=== PATIENT | female | born 1985 | race Caucasian/White ===

== ENCOUNTER → 2016-05-08 | Outpatient (CLI) | payer OTHER ==
[~2016-05-08] MED LIST: ACET50TA PO; LOVE1INJ SC; VITAPRTA PO; [UNRECOGNIZED DRUG - CODE] IJ
[2016-05-08 13:24] LABS: BASO % 0.1 % (0.0-1.0); EOS # 0.1 K/mm3 (0.0-0.50); EOS % 0.8 % (0.0-3.0); LARGE UNSTAINED CELL # 0.2 K/mm3 (0.0-0.4); LARGE UNSTAINED CELL % 1.2 % (0.0-4.0); LYMPH # 2.9 K/mm3 (1.5-6.5); LYMPH % 16.9 % (24.0-44.0); MEAN CORPUSCULAR HEMOGLOBIN 32.9 pg (27.0-33.0); MEAN CORPUSCULAR HGB CONC 33.9 g/dl (32.0-36.5); MEAN CORPUSCULAR VOLUME 97.2 fl (80.0-96.0); MONO # 0.8 K/mm3 (0.0-0.8); MONO % 4.4 % (0.0-5.0); NEUTROPHILS # 13.2 K/mm3 (1.8-7.7); NEUTROPHILS % 76.6 % (36.0-66.0); PLATELET COUNT, AUTOMATED 338 k/mm3 (150-450); RED CELL DISTRIBUTION WIDTH 12.9 % (11.5-14.5); WHITE BLOOD COUNT 17.3 K/mm3 (4.0-10.0)
== END ==
LOC: M SMT 09:08
PROVIDERS: ATTEND Specialist
DX: Z34.82 Encounter for supervision of other normal pregnancy, second trimester (principal)

== ENCOUNTER → 2016-06-15 | Outpatient (CLI) | payer OTHER ==
[2016-06-15 13:28] LABS: BASO % 0.3 % (0.0-1.0); EOS # 0.2 K/mm3 (0.0-0.50); EOS % 1.1 % (0.0-3.0); LARGE UNSTAINED CELL # 0.3 K/mm3 (0.0-0.4); LARGE UNSTAINED CELL % 1.9 % (0.0-4.0); LYMPH % 18.9 % (24.0-44.0); MEAN CORPUSCULAR HEMOGLOBIN 31.1 pg (27.0-33.0); MEAN CORPUSCULAR HGB CONC 33.9 g/dl (32.0-36.5); MEAN CORPUSCULAR VOLUME 91.9 fl (80.0-96.0); MONO # 0.8 K/mm3 (0.0-0.8); MONO % 5.3 % (0.0-5.0); NEUTROPHILS # 11.3 K/mm3 (1.8-7.7); NEUTROPHILS % 72.4 % (36.0-66.0); PLATELET COUNT, AUTOMATED 325 k/mm3 (150-450); WHITE BLOOD COUNT 15.6 K/mm3 (4.0-10.0)
[2016-06-15 13:55] LABS: ALT/SGPT 14 U/L (12-78); AST/SGOT 12 U/L (15-37); BILIRUBIN,TOTAL 0.3 MG/DL (0.2-1.0); CREATININE FOR GFR 0.61 MG/DL (0.55-1.02); GLOMERULAR FILTRATION RATE > 60.0 (>60); URIC ACID 2.4 MG/DL (2.6-6.0)
== END ==
LOC: M LAB 12:47
PROVIDERS: ATTEND Advanced Practice Midwife
DX: Z87.59 Personal history of other complications of pregnancy, childbirth and the puerperium (principal)

== ENCOUNTER → 2016-06-25 | Outpatient (CLI) | payer OTHER ==
[2016-06-25 14:09] LABS: MEAN CORPUSCULAR HEMOGLOBIN 30.6 pg (27.0-33.0); MEAN CORPUSCULAR HGB CONC 34.2 g/dl (32.0-36.5); MEAN CORPUSCULAR VOLUME 89.7 fl (80.0-96.0); RED CELL DISTRIBUTION WIDTH 14.8 % (11.5-14.5)
[2016-06-25 14:32] LABS: ALT/SGPT 12 U/L (12-78); AST/SGOT 12 U/L (15-37); BILIRUBIN,TOTAL 0.4 MG/DL (0.2-1.0); GLOMERULAR FILTRATION RATE > 60.0 (>60); URIC ACID 2.8 MG/DL (2.6-6.0)
== END ==
LOC: M LAB 13:35
PROVIDERS: ATTEND Obstetrics & Gynecology
DX: O16.3 Unspecified maternal hypertension, third trimester (principal); Z3A.00 Weeks of gestation of pregnancy not specified

== ENCOUNTER → 2016-06-27 | Outpatient (CLI) | payer OTHER ==
[~2016-06-27] MED LIST changes: +FIOR1CAP PO
--- NOTE | 2016-06-27 11:02 | REP ---
OB ULTRASOUND: Real-time sonographic evaluation of the gravid uterus performed. There is a single living intrauterine gestation with an estimated gestational age of 35 weeks 5 days. EDC 07/27/2016. Today's measurements indicate appropriate growth. BPD 87 mm 35 weeks 1 day, 43rd percentile HC 306 mm 34 weeks 0 days, 26th percentile AC 320 mm 35 weeks 6 days, 54th percentile FL 70 mm 35 weeks 6 days, 52nd percentile HC/AC ratio 0.96 within normal range. Estimated weight 2719 grams, 49th percentile. Cervix is closed and measures 3.6 cm in length. heart rate 133 beats per minute. Amniotic fluid within normal limits, amniotic fluid index (SAMSON) 9.8 within normal range of 7.8 - 24.9. Today the stomach, kidneys and bladder are visualized and are grossly unremarkable. position breech. Placenta anterior, no previa or abruption. Nuchal cord is not excluded. IMPRESSION: Appropriate growth as discussed in detail above. Signed by Dameon Tuttle MD 06/27/2016 05:21 P
== END ==
LOC: M SMT 09:45
PROVIDERS: ATTEND Obstetrics & Gynecology
DX: O16.3 Unspecified maternal hypertension, third trimester (principal); Z3A.35 35 weeks gestation of pregnancy

== ENCOUNTER 2016-07-01 12:44 | Inpatient (IN) | payer OTHER ==
[2016-07-01] VITALS (11 sets, daily range): BP systolic 123–175; BP diastolic 77–126
[~2016-07-01] VITALS: Ht 180.3 cm; Wt 125.5 kg
[~2016-07-01 12:44] MED LIST changes: +ENOXAPARIN 40 MG/0.4 ML SYRINGE (J1650) SC SCH; -FIOR1CAP PO
[2016-07-01] MEDS ORDERED: LACTATED RINGER'S 1000 ML IV STA (14:22)
[2016-07-01] MEDS ORDERED: LR 1,000 ML IV SCH (14:22)
[2016-07-01] MEDS ORDERED: PENICILLIN G POTASSIUM IV 5 MU in D5W MINI-BAG PLUS 100 ML IV STA (14:22)
[2016-07-01 14:36] LABS: MEAN CORPUSCULAR HEMOGLOBIN 30.9 pg (27.0-33.0); MEAN CORPUSCULAR HGB CONC 34.7 g/dl (32.0-36.5); MEAN CORPUSCULAR VOLUME 89.2 fl (80.0-96.0); RED CELL DISTRIBUTION WIDTH 14.7 % (11.5-14.5); WHITE BLOOD COUNT 14.4 K/mm3 (4.0-10.0)
[2016-07-01 14:42] LABS: ALT/SGPT 21 U/L (12-78); AST/SGOT 21 U/L (15-37); BILIRUBIN,TOTAL 0.3 MG/DL (0.2-1.0); CREATININE FOR GFR 0.76 MG/DL (0.55-1.02); GLOMERULAR FILTRATION RATE > 60.0 (>60)
[2016-07-01] MEDS ORDERED: FIOR1CAP PO (17:52)
[2016-07-01] MEDS: BETAMETHASONE SOLUSPAN 6MG/ML INJ 5ML (J0702) IM SCH (18:00)
[2016-07-01] MEDS: FIORICET TAB PO PRN (18:00)
[2016-07-01] MEDS ORDERED: PENICILLIN G POTASSIUM IV 2.5 MU in D5W 100 ML IV SCH (19:00)
[2016-07-02] VITALS (28 sets, daily range): BP systolic 95–198; BP diastolic 57–121
[2016-07-02] MEDS: FIORICET TAB PO PRN ×3 (06:29→20:30)
[2016-07-02] MEDS: BETAMETHASONE SOLUSPAN 6MG/ML INJ 5ML (J0702) IM SCH (18:08)
[2016-07-02] MEDS ORDERED: ENOXAPARIN 40 MG/0.4 ML SYRINGE (J1650) SC SCH (19:00)
[2016-07-02] MEDS ORDERED: diphenhydrAMINE 50 MG CAP PO PRN (23:30)
[2016-07-03] VITALS (14 sets, daily range): BP systolic 97–158; BP diastolic 52–80
[2016-07-03] MEDS ORDERED: BICITRA 30ML SOLN UDC PO ONE (16:15)
[2016-07-03 16:24] LABS: MEAN CORPUSCULAR HEMOGLOBIN 30.8 pg (27.0-33.0); MEAN CORPUSCULAR HGB CONC 33.7 g/dl (32.0-36.5); MEAN CORPUSCULAR VOLUME 91.5 fl (80.0-96.0); RED CELL DISTRIBUTION WIDTH 14.9 % (11.5-14.5); WHITE BLOOD COUNT 13.7 K/mm3 (4.0-10.0)
[2016-07-03] MEDS ORDERED: ONDANSETRON 4MG/2ML VIAL (J2405) IV PRN ×3 (19:33→21:15)
[2016-07-03] MEDS ORDERED: METOCLOPRAMIDE INJ 10MG/2ML VIAL (J2765) IV PRN (19:33)
[2016-07-03] MEDS ORDERED: NALBUPHINE HCL 10 MG/ML AMP (J2300) IV PRN ×2 (19:33→21:15)
[2016-07-03] MEDS ORDERED: NALOXONE INJ 0.4 MG/1 ML VIAL (J2310) IV PRN ×2 (19:33)
[2016-07-03] MEDS ORDERED: ePHEDrine SULFATE 25 MG/5 ML(5MG/ML) SYRINGE As Ordered ONE (19:39)
[2016-07-03] MEDS ORDERED: OXYTOCIN INJ 10 UNITS/ML VIAL (J2590) As Ordered ONE (19:39)
[2016-07-03] MEDS ORDERED: PHENYLephrine HCL 500 MCG/5 ML (100MCG/ML) SYRINGE (J2370) As Ordered ONE (19:39)
[2016-07-03] MEDS ORDERED: MORPHINE PRES-FREE INJ 10 MG/10 ML VIAL (J2274) As Ordered ONE (19:39)
[2016-07-03] MEDS ORDERED: KETOROLAC 60 MG/2 ML VIAL (J1885) As Ordered ONE (19:51)
[2016-07-03] MEDS ORDERED: ONDANSETRON 4MG/2ML VIAL (J2405) As Ordered ONE (19:52)
[2016-07-03] MEDS ORDERED: MEPERIDINE 50 MG/ML 1ML VIAL (J2175) As Ordered ONE (20:12)
[2016-07-03] MEDS: LR 1,000 ML IV SCH (20:36)
[2016-07-03] MEDS ORDERED: DOCUSATE SODIUM 100 MG CAP PO PRN (20:45)
[2016-07-03] MEDS ORDERED: MEASLES,MUMPS,RUBELLA VACCINE INJ (MMR-II) (90707) SC SCH (20:45)
[2016-07-03] MEDS ORDERED: OXYTOCIN DRIP 30 UNITS in APPROPRIATE DILUENT 1 EA IV ONE (20:45)
[2016-07-03] MEDS ORDERED: PERCOCET 5MG/325MG TAB PO PRN ×2 (20:45)
[2016-07-03] MEDS ORDERED: RHOGAM 300 MCG (1500 IU) INJ (J2790) IM SCH (20:45)
[2016-07-03] MEDS ORDERED: fentaNYL 100 MCG/2 ML INJECTION (J3010) IV PRN (21:15)
[2016-07-04] VITALS (7 sets, daily range): BP systolic 116–138; BP diastolic 59–92
[2016-07-04] MEDS ORDERED: diphenhydrAMINE 25 MG CAP PO PRN
[2016-07-04] MEDS: KETOROLAC 30 MG/ML VIAL (J1885) IV SCH ×4 (01:59→20:23)
[2016-07-04] MEDS: LR 1,000 ML IV SCH ×3 (04:36→20:36)
[2016-07-04] MEDS ORDERED: OXYC1TAB23 PO (06:26)
[2016-07-04] MEDS ORDERED: diphenhydrAMINE 50 MG CAP PO PRN (06:30)
[2016-07-04 07:08] LABS: MEAN CORPUSCULAR HEMOGLOBIN 30.5 pg (27.0-33.0); MEAN CORPUSCULAR HGB CONC 33.2 g/dl (32.0-36.5); MEAN CORPUSCULAR VOLUME 91.7 fl (80.0-96.0); RED CELL DISTRIBUTION WIDTH 15.1 % (11.5-14.5)
[2016-07-04] MEDS: PRENATAL VITAMIN TAB PO SCH (07:33)
[2016-07-05 02:00] VITALS: BP 128/65
[2016-07-05] MEDS ORDERED: IBUPROFEN 800 MG TAB PO SCH (04:00)
[2016-07-05] MEDS: LR 1,000 ML IV SCH (04:36)
[2016-07-05 06:06] VITALS: BP 127/66
[2016-07-05] MEDS: PRENATAL VITAMIN TAB PO SCH (07:51)
--- NOTE | 2016-07-05 07:54 | DSES ---
DATE OF ADMISSION: 07/01/2016 DATE OF DISCHARGE: DISCHARGE DIAGNOSES: 1. Preeclampsia with severe features. 2. Malpresentation. 3. Primary section. PROCEDURES PERFORMED WHILE IN HOSPITAL: 1. External cephalic version which was unsuccessful. 2. Spinal anesthesia. 3. section. DISCHARGE CONDITION: Stable. HISTORY AND HOSPITAL COURSE: Mrs. Murillo is a 31-year-old, 4, para 2, who had presented at 35 weeks 5 days estimated gestational age with complaints of severe headache. On presentation, she was found to have labile severe range blood pressures as well as a severe headache. She was given a course of steroids, followed by unsuccessful external cephalic version and underwent an uncomplicated section secondary to malpresentation with severe preeclampsia. Postoperatively, she did well. She remained stable. By postoperative day #2, had met all discharge criteria and was discharged home in stable condition. PHYSICAL EXAMINATION: On date of discharge, her vital signs are stable. She is afebrile. General Appearance: Well appearing in no acute distress. Her abdomen is soft, appropriately tender. Fundus below umbilicus. Her incision was clean, dry and intact, well approximated, not erythematic. Extremities were negative for calf tenderness. Neurologically, she was grossly intact. DISCHARGE INSTRUCTIONS: 1. She was instructed to followup in one week for a blood pressure check as well as incision check. 2. Report severe pain, heavy vaginal bleeding or fever. 3. Remain on pelvic rest for six weeks. DISCHARGE MEDICATIONS: - Lovenox for history of pulmonary embolism - Heatherjet
[2016-07-05] MEDS ORDERED: COLA100C PO (09:31)
--- NOTE | 2016-07-05 12:25 | RO ---
DATE OF PROCEDURE: 07/03/2016 PREPROCEDURE DIAGNOSES: 35-5/7 weeks gestation, preeclampsia with severe features, breech presentation. POSTPROCEDURE DIAGNOSES: 35-5/7 weeks gestation, preeclampsia with severe features, breech presentation. PROCEDURE: Primary low transverse section. SURGEON: Dr. Kapil Weller TAIL PULLER: ANESTHESIA: Spinal. ESTIMATED BLOOD LOSS: 600 mL. FINDINGS: 6 pound 6 ounce female, 8 and 9, pankaj breech position. Normal uterus, fallopian tubes and ovaries. Apparent accessory lobe of the placenta. OPERATIVE SUMMARY: The patient was taken to the operating room where spinal anesthesia was induced. She was prepped and draped in a sterile fashion in the supine position. Puckett catheter was placed. A Pfannenstiel skin incision was made with a scalpel and carried through to the fascia. The fascia was nicked and extended. The fascia was dissected off the rectus muscles. The rectus muscles were divided and the peritoneal cavity was entered. Bladder flap was created. Curvilinear incision was made in the lower uterus until clear fluid was noted. This was extended manually. The was delivered from pankaj breech position using standard maneuvers without difficulty. The cried spontaneously. The cord was doubly clamped and cut. The infant was handed off to the awaiting jordan man. The placenta was expressed. The uterus was exteriorized and cleared of clots and debris. Uterine incision was closed with #0 Vicryl in a running locked fashion. A second imbricating layer of #0 Vicryl was placed. The uterus was placed back in the abdominal cavity, the peritoneum was closed with #2-0 Vicryl in a running fashion. The fascia was closed with #0 Vicryl. The subcutaneous tissue was irrigated with deep layers and closed with #3-0 Chromic. The skin was closed with #4-0 Monocryl subcuticular sutures. Sponge, instrument, needle counts were correct.
== END 2016-07-05 10:15 | disposition home or self-care (01) | DRG 766 ==
LOC: M LDO 12:44 → M LDI 13:37 → M OBS 19:00 → M LDI 07-03 10:40 → M OBS 07-03 21:52
PROVIDERS: ADMIT Obstetrics & Gynecology; ATTEND Obstetrics & Gynecology
PROC: 10D00Z1 Extraction of Products of Conception, Low, Open Approach (ICD-10-PCS; principal; 2016-07-03 10:37)
DX: O14.14 Severe pre-eclampsia complicating childbirth (principal); Z37.0 Single live birth; Z3A.35 35 weeks gestation of pregnancy; O32.1XX0 Maternal care for breech presentation, not applicable or unspecified; O99.52 Diseases of the respiratory system complicating childbirth; J45.909 Unspecified asthma, uncomplicated; Z79.899 Other long term (current) drug therapy; Z80.3 Family history of malignant neoplasm of breast; Z86.711 Personal history of pulmonary embolism; Z82.0 Family history of epilepsy and other diseases of the nervous system

== ENCOUNTER → 2016-10-15 | Outpatient (REF) | payer OTHER ==
[~2016-10-15] MED LIST changes: +COLA100C3 PO; -ENOXAPARIN 40 MG/0.4 ML SYRINGE (J1650) SC SCH; +FIOR1CAP PO; +OXYC1TAB23 PO
== END ==
LOC: M SFHCLERA 17:50
PROVIDERS: ATTEND Physician Assistant
DX: R30.0 Dysuria (principal)

== ENCOUNTER → 2016-11-21 | Outpatient (REF) | payer OTHER ==
[~2016-11-21] MED LIST changes: -COLA100C3 PO; +COLA100C5 PO
[2016-11-21 11:05] LABS: BASO % 0.3 % (0.0-1.0); EOS # 0.2 K/mm3 (0.0-0.50); EOS % 1.7 % (0.0-3.0); LARGE UNSTAINED CELL # 0.1 K/mm3 (0.0-0.4); LARGE UNSTAINED CELL % 1.2 % (0.0-4.0); LYMPH # 2.7 K/mm3 (1.5-6.5); LYMPH % 27.1 % (24.0-44.0); MEAN CORPUSCULAR HEMOGLOBIN 32.6 pg (27.0-33.0); MEAN CORPUSCULAR HGB CONC 35.8 g/dl (32.0-36.5); MEAN CORPUSCULAR VOLUME 91.3 fl (80.0-96.0); MONO # 0.5 K/mm3 (0.0-0.8); MONO % 5.5 % (0.0-5.0); NEUTROPHILS # 6.2 K/mm3 (1.8-7.7); NEUTROPHILS % 64.3 % (36.0-66.0); PLATELET COUNT, AUTOMATED 270 k/mm3 (150-450); RED CELL DISTRIBUTION WIDTH 14.2 % (11.5-14.5); WHITE BLOOD COUNT 9.7 K/mm3 (4.0-10.0)
[2016-11-21 12:35] LABS: ERYTHROCYTE SEDIMENTATION RATE 6 mm/hr (0-20)
[2016-11-23 00:07] LABS: Lyme Disease IgG/IgM Antibodie <0.91 ISR (0.00-0.90); Lyme Disease IgM Ab Quantitati <0.80 index (0.00-0.79)
== END ==
LOC: M LABDRAW1 10:30
PROVIDERS: ATTEND Orthopaedic Surgery
DX: M17.12 Unilateral primary osteoarthritis, left knee (principal)

== ENCOUNTER → 2017-05-04 | Outpatient (REF) | payer OTHER | LOC: M SFHCLERA 15:25 | DX: R30.0 Dysuria (principal) ==

== ENCOUNTER → 2017-05-22 | Outpatient (REF) | payer OTHER | LOC: M SFHCLERA 13:36 | DX: R30.0 Dysuria (principal) | CPT/HCPCS: 87086 ==